=== PATIENT | male | born 1940 | race Caucasian/White ===

== ENCOUNTER → 2019-06-23 | Outpatient (CLI) | payer OTHER ==
[~2019-06-23] MED LIST: AMBIEN 5 MG TABL5 M1 PO; ATORVASTATIN CA40 MG PO; CALCIUM 600 +1 EAC1 PO; CALCIUM 600 MG1 EAC3 PO; CARVEDILOL6.25 MG PO; COUMADIN 2 MG TA2 M1 PO; COUMADIN 4 MG TA4 M1 PO; ELIQUIS2.5 MG PO; ELIQUIS5 MG PO; ERYTHROMYCIN E3.5 G3 OPHTHALMIC; ETODOLAC500 MG PO; FISH OIL 1,0001 EAC5 PO; FISH OIL 1,2001 EAC3 PO; FLOMAX0.4 MG PO; HYTRIN 5 M5 MG/1 CAP PO; INDERAL LA80 MG PO; K-DUR 20 MEQ T20 MEQ PO; MULTIVITAMINS PO; MULTIVITAMINS1 EAC7 PO; NORCO 5-325 TA1 EACH PO; OMEGA-31000 M1 PO; PROPANOLOL PO; SPIRIVA INH; SYMBICORT160 MCG/4. INH; ULTRAM 50MG TAB50 MG PO; VITAMIN D-32000 UNIT PO; VITAMIN D31000 UNI2 PO; VITAMIN D3400 UNI2 PO; VITAMINC500 PO
[2019-06-23 16:04] LABS: HEMATOCRIT 45.1 % (42.0-52.0); HEMOGLOBIN 15.5 gm/dL (14.0-18.0); MCH 30.8 pg (26.0-34.0); MCHC 34.5 g/dL (28.0-37.0); MCV 89.2 fL (80.0-100.0); MPV 7.5 fl. (7.2-11.1); RBC 5.05 mil/uL (4.50-6.00); RDW-CV 15.4 % (10.5-14.5); WBC 6.2 thou/uL (4.0-11.0)
[2019-06-23 16:20] LABS: ALBUMIN 3.5 g/dL (3.4-5.0); CALCIUM 9.2 mg/dL (8.5-10.1); CREATININE 1.3 mg/dL (0.6-1.3); POTASSIUM 4.5 mmol/L (3.5-5.1); TOTAL BILIRUBIN 0.8 mg/dL (<0.1-1.0); TOTAL PROTEIN 7.1 g/dL (6.4-8.2)
== END ==
LOC: M.LAB 15:40
PROVIDERS: Internal Medicine Cardiovascular Disease
DX: R53.82 Chronic fatigue, unspecified (principal)

== ENCOUNTER → 2020-01-17 | Outpatient (CLI) | payer OTHER ==
--- NOTE | 2020-01-17 14:38 | 2DMMODE ---
[place] [address] 2 D/M-MODE ECHOCARDIOGRAM Name: HA MENDOZA Room: [facility] HenryCaroline#: [id number] Admission: 01/17/20 Attend Phys: Santos Mendoza, Discharge: Date of : 40 Date of Service: 01/17/20 1437 Report #: [id number] THIS REPORT FOR: cc: Michael Millard MD, Matthew W. MD Blick, David R. MD [facility] ~ APPROVED REPORT Study performed: 01/17/2020 11:01:32 EXAM: Comprehensive 2D, Doppler, and color-flow Echocardiogram Patient Location: Out-Patient BSA: 1.93 HR: 70 bpm BP: 140/72 mmHg Other Information Study Quality: Good Indications Atrial Fibrillation 2D Dimensions IVSd: 13.60 (7-11mm) LVOT Diam: 20.16 (18-24mm) LVDd: 48.16 mm PWd: 11.76 (7-11mm) Ascending Ao: 31.44 (22-36mm) LVDs: 24.64 (25-40mm) Aortic Root: 28.69 mm Volumes Left Atrial Volume (Systole) LA ESV Index: 35.70 mL/m2 Aortic Valve AoV Peak Natanael.: 0.76 m/s AO Peak Gr.: 2.33 mmHg LVOT Max P.82 mmHg AO Mean Gr.: 1.17 mmHg LVOT Mean P.95 mmHg LVOT Max V: 0.67 m/s AO V2 VTI: 17.68 cm LVOT Mean V: 0.45 m/s DIANNE (VTI): 3.27 cm2 LVOT V1 VTI: 18.14 cm Mitral Valve MV Decel. Time: 151.68 [place] [address] 2 D/M-MODE ECHOCARDIOGRAM Name: HA MENDOZA Room: [facility]#: [id number] Admission: 01/17/20 Attend Phys: Santos Mendoza, Discharge: Date of : 40 Date of Service: 01/17/20 1437 Report #: [id number] MV PHT: 43.99 ms MVA (PHT): 5.00 cm2 TDI Medial E' Natanael.: 0.10 m/s Lateral E' Natanael.: 0.10 m/s Pulmonary Valve PV Peak Natanael.: 0.64 m/s PV Peak Gr.: 1.64 mmHg Tricuspid Valve RAP Estimate: 5.00 mmHg TR Peak Gr.: 30.79 mmHg RVSP: 35.79 mmHg PA Pressure: 35.79 mmHg Left Ventricle The left ventricle is normal size. There is normal LV segmental wall motion. Mild concentric left ventricular hypertrophy. Left ventricular systolic function is normal. The left ventricular ejection fraction is within the normal range. LVEF is 55-60%. This study is not technically sufficient to allow evaluation of the LV diastolic function due to atrial fibrillation. Right Ventricle The right ventricle is normal size. The right ventricular systolic function is normal. Atria Left atrium is mildly dilated. Right atrium is mildly dilated. Aortic Valve The aortic valve is normal in structure. Trace aortic regurgitation. There is no aortic valvular stenosis. Mitral Valve Mild mitral annular calcification. Trace to mild mitral regurgitation. No evidence of mitral valve stenosis. Tricuspid Valve The tricuspid valve is normal in structure. Mild tricuspid regurgitation. estimated pa pressure 40 mm Hg Pulmonic Valve The pulmonary valve is normal in structure. There is no pulmonic [place] [address] 2 D/M-MODE ECHOCARDIOGRAM Name: HA MENDOZA Room: [facility]#: [id number] Admission: 01/17/20 Attend Phys: Santos Mendoza, Discharge: Date of : 40 Date of Service: 01/17/20 1437 Report #: [id number] Great Vessels The aortic root is normal in size. IVC is normal in size and collapses >50% with inspiration. Pericardium There is no pericardial effusion. <Conclusion> Mild concentric left ventricular hypertrophy. LVEF is 55-60%. Left atrium is mildly dilated. Right atrium is mildly dilated. <ELECTRONICALLY SIGNED> By: Sean Tyson MD, FACC 01/17/20 1437 143 [id number] Sean Tyson MD, FAC /INF
== END ==
LOC: M.CRD 10:47
PROVIDERS: ATTEND Internal Medicine Cardiovascular Disease
DX: I08.1 Rheumatic disorders of both mitral and tricuspid valves (principal); I48.21 Permanent atrial fibrillation

== ENCOUNTER 2020-12-08 16:32 | Inpatient (IN) | payer OTHER ==
[~2020-12-08] VITALS: Ht 167.6 cm; Wt 83.9 kg
[~2020-12-08 16:32] MED LIST changes: -CARVEDILOL6.25 MG PO; +COREG6.25 MG PO
[2020-12-08 16:51] VITALS: BP 205/116
[2020-12-08] MEDS ORDERED: SYMBICORT160 MCG/4. INH (16:58)
[2020-12-08 16:59] LABS: ABSOLUTE BASOPHILS 0.1 thou/uL (0.0-0.2); ABSOLUTE EOSINOPHILS 0.2 thou/uL (0.0-0.7); ABSOLUTE LYMPHOCYTES 1.5 thou/uL (0.8-5.3); ABSOLUTE NEUTROPHILS 4.2 thou/uL (1.6-8.1); BASOPHILS 0.8 %; EOSINOPHILS 3.3 %; HEMATOCRIT 46.2 % (42.0-52.0); HEMOGLOBIN 15.5 gm/dL (14.0-18.0); MCH 29.6 pg (26.0-34.0); MCHC 33.5 g/dL (28.0-37.0); MCV 88.4 fL (80.0-100.0); MONOCYTES 14.3 %; NUCLEATED RBCS 0 /100WBC; PLATELET COUNT* 195 thou/uL (150-400); POLYS 59.6 %; RBC 5.22 mil/uL (4.50-6.00); RDW-CV 16.5 % (10.5-14.5)
[2020-12-08 17:08] LABS: CALCIUM 9.1 mg/dL (8.5-10.1); CREATININE 1.4 mg/dL (0.6-1.3); POTASSIUM 4.7 mmol/L (3.5-5.1)
[2020-12-08 17:19] LABS: ALBUMIN 3.9 g/dL (3.4-5.0); TOTAL BILIRUBIN 0.8 mg/dL (<0.1-1.0); TOTAL PROTEIN 8.1 g/dL (6.4-8.2)
[2020-12-08 20:21] VITALS: BP 178/96
[2020-12-08 20:30] VITALS: BP 172/77
[2020-12-09] VITALS: BP 135/68
[2020-12-09 04:00] VITALS: BP 151/85
[2020-12-09 05:32] LABS: ABSOLUTE EOSINOPHILS 0.3 thou/uL (0.0-0.7); ABSOLUTE LYMPHOCYTES 1.4 thou/uL (0.8-5.3); ABSOLUTE MONOCYTES 1.1 thou/uL (0.0-1.2); ABSOLUTE NEUTROPHILS 3.9 thou/uL (1.6-8.1); BASOPHILS 0.7 %; CALCIUM 8.8 mg/dL (8.5-10.1); CREATININE 1.3 mg/dL (0.6-1.3); HEMATOCRIT 43.6 % (42.0-52.0); HEMOGLOBIN 14.8 gm/dL (14.0-18.0); LYMPHOCYTES 20.2 %; MCH 29.2 pg (26.0-34.0); MCV 85.8 fL (80.0-100.0); MONOCYTES 16.6 %; MPV 7.1 fl. (7.2-11.1); NUCLEATED RBCS 0 /100WBC; PLATELET COUNT* 185 thou/uL (150-400); POLYS 58.5 %; POTASSIUM 3.9 mmol/L (3.5-5.1); RBC 5.08 mil/uL (4.50-6.00); RDW-CV 16.2 % (10.5-14.5); WBC 6.7 thou/uL (4.0-11.0)
--- NOTE | 2020-12-09 05:48 | NUR ---
REPORT RECIEVED FROM ER. PT ORIENTED TO ROOM, CALL LIGHT SHOWN, FALL AGREEMENT WENT OVER, PT STATED UNDERSTANDING. IV PATENT. NO REPORTS OF PAIN. ADMISSION DOCUMENTED. FALL PRECAUTIONS IN PLACE. PT REPORTED HE RECENTLY HAD CHEST PAIN, BUT NOT CURRENTLY, PT EDUCATED TO NOTIFY STAFF IF IT RETURNED. FALL PRECAUTIONS IN PLACE. WILL CONTINUE WITH PLAN OF CARE.
[2020-12-09] MEDS ORDERED: MELATONIN10 M3 PO (07:17)
[2020-12-09 08:00] VITALS: BP 168/104
[2020-12-09 14:10] VITALS: BP 144/79
[2020-12-09 19:31] VITALS: BP 168/94
--- NOTE | 2020-12-09 19:40 | NUR ---
PT. AOX4, VSS, DENIES PAIN OR DISCOMFORT, CALL LIGHT AND PERSONAL BELONGINGS PLACED WITHIN REACH. PT. REFUSES CHAIR ALARM. VISITED BY FAMILY MEMBERS AT [facility]. PT. IN CHAIR, WATCHING TV, IN STABLE CONDITION AT SHIFT CHANGE.
[2020-12-09 20:00] VITALS: BP 167/83
[2020-12-10] VITALS: BP 156/76
[2020-12-10 04:00] VITALS: BP 148/78
--- NOTE | 2020-12-10 06:09 | NUR ---
ASSUMED PT CARE AT APPROX 1930. PT IS AWAKE AND ORIENTED X4. PT IS NOT IN DISTRESS, NO DESATURATIONS NOTED ON ROOM AIR. PT IS TRACING AFIB-RATE CONTROLLED ON THE SNOUT PULLER. PT DENIES CHEST PAIN/DISCOMFORT. NO ACUTE CHANGES THIS SHIFT. CALL LIGHT WITHIN REACH. HOURLY ROUNDING DONE FOR PT SAFETY.
--- NOTE | 2020-12-10 06:37 | NUR ---
Assumed pt care at approx 1930. Pt is awake and oriented x4. Pt is not in distress, no desaturations noted on 9L of O2/HFC. Pt complained of back pain relieved by scheduled pain meds per sep. Pt's O2 was decreased by RT to 6L/HFC to keep spO2 >92%. No other changes this shift. Call light within reach. High fall precautions in place. Hourly rounding done for pt safety.
[2020-12-10 08:00] VITALS: BP 187/107
[2020-12-10 08:18] LABS: CALCIUM 8.8 mg/dL (8.5-10.1); CREATININE 1.3 mg/dL (0.6-1.3); POTASSIUM 3.9 mmol/L (3.5-5.1)
[2020-12-10 13:52] VITALS: BP 135/76
[2020-12-10 16:00] VITALS: BP 128/777
[2020-12-10 20:00] VITALS: BP 142/76
--- NOTE | 2020-12-10 20:08 | NUR ---
PT. AOX4,VSS,BP UNDER CONTROL WITH PRN HYDRALAZINE. PT C/O OF CHEST DISCOMFORT, EKG NORMAL PER ROSELINE. DR. SWEENEY NOTIFIED OF PATIENT FAMILY CONCERNS OF PLAN OF CARE. CP SYMPTOMS RESOLVED AFTER A FEW HOURS. PT. WITH FAMILY AT BEDSIDE AT SHIFT CHANGE. PT. IN STABLE CONDITION AT SHIFT CHANGE.
[2020-12-11] VITALS: BP 133/76
[2020-12-11 04:00] VITALS: BP 149/74
--- NOTE | 2020-12-11 05:09 | NUR ---
ASSUMED PT CARE AT APPROX 1930. PT IS AWAKE AND ORIENTED X4. PT IS NOT IN DISTRESS, NO DESATURATIONS NOTED ON ROOM AIR. PT DENIES CHEST PAIN/DISCOMFORT. NO ACUTE CHANGES THIS SHIFT. PT IS REMINDED TO HAVE NOTHING BY MOUTH AFTER MIDNIGHT EXCEPT WATER FOR STRESS TEST IN AM. KALYN LLIGHT WITHIN REACH. HOURLY ROUNDING DONE FOR PT SAFETY.
[2020-12-11 05:19] LABS: CALCIUM 8.8 mg/dL (8.5-10.1); CREATININE 1.4 mg/dL (0.6-1.3); POTASSIUM 3.9 mmol/L (3.5-5.1)
[2020-12-11 07:57] VITALS: BP 140/75
[2020-12-11] MEDS ORDERED: COZAAR 50 MG TA50 M1 PO (12:27)
[2020-12-11] MEDS ORDERED: LASIX 40 MG TAB40 M2 PO (12:29)
--- NOTE | 2020-12-11 13:46 | EKG ---
[place] [address] ELECTROCARDIOGRAM REPORT Name: LAURIEMAXIMINOHA Dumont Jose E Room: [address] ADM IN .R.#: [id number] Admission: 12/08/20 Attend Phys: Jason Dennis, Discharge: Date of : 40 Date of Service: 12/08/20 1702 Report #: [id number] THIS REPORT FOR: //name// [facility] ED Test Date: 2020-12-08 Test Time: 17:02:30 Pat Name: HA MENDOZA Department: Room: [facility] Gender: M [employer] Supervisor: CD : 1940 Requested By: Андрей Pineda Order Number: [id number] MD: Freeman Lora Measurements Intervals [place] Rate: 62 P: NC: QRS: 72 QRSD: 98 T: 32 QT: 444 QTc: 451 Interpretive Statements Atrial fibrillation Borderline low voltage, extremity leads RSR' in V1 or V2, probably normal variant Compared to ECG 08/25/2013 11:12:13 RSR' in V1 or V2 now present Electronically Signed On 12-11-2020 13:46:27 CDT by Freeman Lora [email or web address] <ELECTRONICALLY SIGNED> By: Freeman Lora MD, [facility] 12/11/20 1346 01 170 Freeman Lora MD, [facility] /EPI
--- NOTE | 2020-12-11 13:50 | EKG ---
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1885 : 1940 Requested By: Jason Dennis Order Number: [id number] Reading MD: Freeman Lora Measurements Intervals [place] Rate: 80 P: CA: QRS: 82 QRSD: 102 T: -2 QT: 389 QTc: 449 Interpretive Statements Atrial fibrillation Borderline right axis deviation Probable anteroseptal infarct, old Borderline T abnormalities, inferior leads Compared to ECG 12/08/2020 17:02:30 Myocardial infarct finding now present T-wave abnormality now present Electronically Signed On 12-11-2020 13:50:29 CDT by Freeman Lora [email or web address] <ELECTRONICALLY SIGNED> By: Freeman Lora MD, [facility] 12/11/20 1350 1018 1018 Freeman Lora MD, [facility] /EPI
[2020-12-11 16:00] VITALS: BP 127/66
--- NOTE | 2020-12-11 16:50 | 2DMMODE ---
[place] [address] 2 D/M-MODE ECHOCARDIOGRAM Name: HA MENDOZA Room: [address] IN .R.#: [id number] Admission: 12/08/20 Attend Phys: Jason Dennis, Discharge: Date of : 40 Date of Service: 12/11/20 1650 Report #: [id number] THIS REPORT FOR: cc: Michael Millard MD, Matthew W. MD Holkins, John M. MD [facility] ~ APPROVED REPORT Study performed: 12/11/2020 14:28:06 EXAM: Comprehensive 2D, Doppler, and color-flow Echocardiogram Patient Location: In-Patient Room #: [facility] Status: routine BSA: 1.92 HR: 72 bpm BP: 140/75 mmHg Rhythm: Atrial Fibrillation Other Information Study Quality: Good Indications Congestive Heart Failure Atrial Fibrillation 2D Dimensions IVSd: 10.47 (7-11mm) LVOT Diam: 20.69 (18-24mm) LVDd: 41.56 mm PWd: 12.12 (7-11mm) Ascending Ao: 31.64 (22-36mm) LVDs: 21.36 (25-40mm) Aortic Root: 32.70 mm Volumes Left Atrial Volume (Systole) LA ESV Index: 55.60 mL/m2 Aortic Valve AoV Peak Natanael.: 0.86 m/s AO Peak Gr.: 2.93 mmHg LVOT Max P.72 mmHg AO Mean Gr.: 1.92 mmHg LVOT Mean P.58 mmHg LVOT Max V: 0.83 m/s AO V2 VTI: 20.26 cm LVOT Mean V: 0.59 m/s DIANNE (VTI): 3.51 cm2 LVOT V1 VTI: 21.12 [place] [address] 2 D/M-MODE ECHOCARDIOGRAM Name: MUNAANGEL DumontBrandon Dorantes Room: [address] IN [facility]#: [id number] Admission: 12/08/20 Attend Phys: Jason Dennis, Discharge: Date of : 40 Date of Service: 12/11/20 1650 Report #: [id number] TDI Medial E' Natanael.: 0.10 m/s Lateral E' Natanael.: 0.12 m/s Pulmonary Valve PV Peak Natanael.: 0.81 m/s PV Peak Gr.: 2.60 mmHg Tricuspid Valve RAP Estimate: 5.00 mmHg TR Peak Gr.: 32.44 mmHg RVSP: 37.00 mmHg PA Pressure: 37.00 mmHg Left Ventricle The left ventricle is normal size. There is normal LV segmental wall motion. There is normal left ventricular wall thickness. Left ventricular systolic function is normal. The left ventricular ejection fraction is within the normal range. LVEF is 60-65%. This study is not technically sufficient to allow evaluation of the LV diastolic function due to atrial fibrillation. Right Ventricle The right ventricle is normal size. The right ventricular systolic function is normal. Atria Left atrium is moderately dilated. The right atrium size is normal. Aortic Valve The aortic valve is normal in structure. Trace aortic regurgitation. There is no aortic valvular stenosis. Mitral Valve Mild mitral annular calcification. Trace mitral regurgitation. No evidence of mitral valve stenosis. Tricuspid Valve The tricuspid valve is normal in structure. Mild tricuspid regurgitation. Mild pulmonary hypertension. Pulmonic Valve The pulmonary valve is normal in structure. There is no pulmonic valvular regurgitation[place] [address] 2 D/M-MODE ECHOCARDIOGRAM Name: HA MENDOZA Room: [address]#: [id number] Admission: 12/08/20 Attend Phys: Jason Dennis, Discharge: Date of : 40 Date of Service: 12/11/20 1650 Report #: [id number] The aortic root is normal in size. IVC is normal in size and collapses >50% with inspiration. Pericardium There is no pericardial effusion. <Conclusion> The left ventricle is normal size. There is normal left ventricular wall thickness. Left ventricular systolic function is normal. The left ventricular ejection fraction is within the normal range. LVEF is 60-65%. This study is not technically sufficient to allow evaluation of the LV diastolic function due to atrial fibrillation. The right ventricle is normal size. Left atrium is moderately dilated. The aortic valve is normal in structure. Mild mitral annular calcification. Trace mitral regurgitation. The tricuspid valve is normal in structure. Mild tricuspid regurgitation. Mild pulmonary hypertension. IVC is normal in size and collapses >50% with inspiration. There is no pericardial effusion. There is normal LV segmental wall motion. <ELECTRONICALLY SIGNED> By: Freeman Lora MD, FACC 12/11/201649 49 49 Freeman Lora MD, FACC /INF
--- NOTE | 2020-12-11 17:38 | CARDNUC ---
[place] [address] CARDIAC NUCLEAR IMAGING REPORT Name: HA MENDOZA Room: [address] IN [facility]#: [id number] Admission: 12/08/20 Attend Phys: Jason Dennis, Discharge: Date of : 40 Date of Service: 12/11/20 1737 Report #: [id number] THIS REPORT FOR: cc: Michael Millard MD, Matthew W. MD Liston, Michael J. MD [facility] ~ ADDENDUM APPROVED REPORT Imaging Protocol: Stress Tc-99m/Rest Tc-99m 1 day Study performed: 12/10/2020 12:10:00 Indication: Chest pain, dyspnea, AFib, LE Edema. Patient Location: In-Patient Room #: 231 Stress Tech: Ana Duval Stress Nurse: Carla Hall RN Ht: 5 ft 6 in Wt: 181 lbs BSA: 1.92 m2 BMI: 29.21 Medical History Medical History: CHF, chest pain, dyspnea, chronic AFib, COPD, HX AMS, HTN, Hyperlipidemia, CAD/ catherization, orthostatic hypotension, HX CVA, s/p covid-19, LE Edema, increased weakness, HX renal insufficiency, 3 months N/V episodes, past smoker, FHX CAD. Medications: Carvedilol, Lasix, Losartan K+, Eliquis, Atorvastatin, K-Dur, Hydralazine. Allergies: No known drug allergies Cardiac Risk Factors: Age, FHX of CAD, HTN, Hyperlipidemia, SOB, Past Smoker, AFib, CHF. Previous Cardiac Procedures: Catherization. Pretest Chest Pain Characteristics: No chest pain Exercise History: Sedentary Physical Disabilities: Weakness, LE edema, AFib. Meds Held (24 hrs): Carvedilol. Resting Data Rest SPECT myocardial perfusion imaging was performed in supine position 30 minutes following the intravenous injection of 10.1 mCi of Tc-99m Sestamibi. Time of rest injection: 10:25 The images were gated to evaluate regional wall motion and calculate left ventricular [place] [address] CARDIAC NUCLEAR IMAGING REPORT Name: HA MENDOZA Room: [address]#: [id number] Admission: 12/08/20 Attend Phys: Jason Dennis, Discharge: Date of : 40 Date of Service: 12/11/20 1737 Report #: [id number] Administration Route: IV Administration Site: Right AC Pharmacologic Stress Pharmacologic stress test was performed by injecting Regadenoson 0.4 mg IV push over 10-15 seconds immediately followed by the intravenous injection of 30.2 mCi of Tc-99m Sestamibi. Time of stress injection: 12:05 Administration Route: IV Administration Site: Right AC Heart Rate at time of stress injection: 90 bpm. Gated Stress SPECT was performed 45 minutes after stress injection. The images were gated to evaluate regional wall motion and calculate left ventricular ejection fraction. Stress Test Details Stress Test: Pharmacologic stress testing performed using 0.4 mg of regadenoson per 5 mL given IV over 10 seconds. Reason for pharmacologic stress test: Weakness, LE edema, AFib.. HR Max Heart Rate (APMHR): 140 bpm Resting HR: 67 bpm Target HR (85% APMHR): 119 bpm Max HR Achieved: 90 bpm % of APMHR: 64 Recovery HR: 69 bpm BP Resting BP: 154/79 mmHg Max BP: 157/71 mmHg Recovery BP: 147/83 mmHg ECG Resting ECG: Atrial Fibrillation Stress ECG: Atrial Fibrillation ST Change: None Arrhythmia: None Recovery ECG: Atrial Fibrillation Recovery ST Change: None Recovery Arrhythmia: None Clinical Reason for Termination: Completed protocol Stress Symptoms: Dyspnea, Chest heaviness 6/10, Lightheaded/dizzy, heavy arms. Exercise duration: 00 min 00 [place] [address] CARDIAC NUCLEAR IMAGING REPORT Name: MUNATimHA E Room: [address] IN [facility]#: [id number] Admission: 12/08/20 Attend Phys: Jason Dennis, Discharge: Date of : 40 Date of Service: 12/11/20 1737 Report #: [id number] Exercise capacity: 1.00 METs The patient tolerated Lexiscan infusion without significant cardiac symptoms. Nurse Comments An 80 year old male inpatient presented for a sitting Lexiscan r/t AFib, LE Edema/CHF, chest pain and dyspnea. Test well tolerated. Recovery unremarkable. Patient was stable and stated he felt better when escorted via wheelchair to [facility] for imaging. Stress ECG Conclusion The baseline twelve-lead EKG shows atrial fibrillation without significant ST segment or T wave abnormality. EKGs obtained during and post Lexiscan infusion show atrial fibrillation with no significant ST segment or T wave changes when compared to baseline. Study Quality Study: Good Artifact: No artifact Study Data At rest, the left ventricular ejection fraction was 69%.. Post stress, the left ventricular ejection was 73%.. TID = 0.95. Perfusion Perfusion images obtained at rest and post Lexiscan stress show uniform uptake of the radioisotope that the myocardium. There were no defects to suggest infarct or ischemia. Wall Motion Normal left ventricular wall motion. Nuclear Conclusion ECG Findings: negative for ischemia Clinical Findings: negative for ischemia Nuclear Findings: negative for ischemia Exercise Capacity: not assessed Left Ventricular Function: normal Risk Study: low Perfusion images show no defect to suggest infarct or ischemia. Left ventricular systolic function is normal on gated studies. This is a low risk study. <Conclusion> The baseline twelve-lead EKG shows atrial fibrillation [place] [address] CARDIAC NUCLEAR IMAGING REPORT Name: KELLYHA E Room: [address]#: [id number] Admission: 12/08/20 Attend Phys: Jason Dennis, Discharge: Date of : 40 Date of Service: 12/11/201736 Report #: [id number] segment or T wave abnormality. EKGs obtained during and post Lexiscan infusion show atrial fibrillation with no significant ST segment or T wave changes when compared to baseline. <ELECTRONICALLY SIGNED> By: Santos Mendoza MD, [facility] 12/11/201736 36 36 Santos Mendoza MD, FACC /INF
[2020-12-11 18:04] VITALS: BP 140/75
--- NOTE | 2020-12-11 18:19 | NUR ---
PATIENT HAS REMAINED A&OX4, PLEASANT AND COOPERATIVE WITH CARES THIS SHIFT. CARDIO TESTING COMPLETED AND PATIENT SEEN BY DR. BARBA THIS EVENING. PATIENT TO FOLLOW UP WITH DR. BARBA. PATIENT GIVEN DISCHARGE PAPERWORK, IV REMOVED. PATIENT DENIES ANY PAIN/QUESTIONS/CONCERNS PRIOR TO DISCHARGE. PATIENT LEFT UNIT VIA W/C WITH PERSONAL BELONGINGS ACCOMPANIED BY NURSING STAFF AND AT APPROX. 1820.
[2020-12-11 18:24] VITALS: BP 140/75
== END 2020-12-11 18:20 | disposition home or self-care (01) | DRG 177 ==
LOC: M.ERS 16:32 → M.2W 18:24 → M.TBA-ER 18:24 → M.2W 20:52
PROVIDERS: Emergency Medicine Emergency Medical Services; Registered Nurse; ADMIT Internal Medicine; ATTEND Internal Medicine
DX: J15.6 Pneumonia due to other Gram-negative bacteria (principal); I50.33 Acute on chronic diastolic (congestive) heart failure; N17.9 Acute kidney failure, unspecified; I48.20 Chronic atrial fibrillation, unspecified; I13.0 Hypertensive heart and chronic kidney disease with heart failure and stage 1 through stage 4 chronic kidney disease, or unspecified chronic kidney disease; N18.9 Chronic kidney disease, unspecified; J44.9 Chronic obstructive pulmonary disease, unspecified; E78.5 Hyperlipidemia, unspecified; I16.0 Hypertensive urgency; F17.210 Nicotine dependence, cigarettes, uncomplicated; Z20.822 Contact with and (suspected) exposure to COVID-19; Z86.73 Personal history of transient ischemic attack (TIA), and cerebral infarction without residual deficits; Z79.01 Long term (current) use of anticoagulants; Z79.899 Other long term (current) drug therapy; Z72.89 Other problems related to lifestyle; Z86.16 Personal history of COVID-19

== ENCOUNTER → 2020-12-15 | Outpatient (CLI) | payer OTHER ==
[~2020-12-15] MED LIST changes: +COZAAR 50 MG TA50 M1 PO; +LASIX 40 MG TAB40 M2 PO; +MELATONIN10 M3 PO
[2020-12-15 15:40] LABS: ALBUMIN 3.7 g/dL (3.4-5.0); CALCIUM 8.8 mg/dL (8.5-10.1); CREATININE 1.5 mg/dL (0.6-1.3); POTASSIUM 4.7 mmol/L (3.5-5.1); TOTAL BILIRUBIN 0.7 mg/dL (<0.1-1.0); TOTAL PROTEIN 7.7 g/dL (6.4-8.2)
== END ==
LOC: M.LAB 15:08
PROVIDERS: ATTEND Nurse Practitioner
DX: I50.32 Chronic diastolic (congestive) heart failure (principal)